=== PATIENT | male | born 1985 | race Caucasian/White ===

== ENCOUNTER 2017-07-22 09:54 | Outpatient (CLI) | payer OTHER | END 2017-07-22 09:55 | disposition home or self-care (01) | LOC: LABBT 09:54 | PROVIDERS: ATTEND Specialist | DX: Z01.818 Encounter for other preprocedural examination (principal); R22.2 Localized swelling, mass and lump, trunk ==

== ENCOUNTER 2017-07-25 06:05 | Day surgery (SDC) | payer OTHER ==
--- NOTE | 2017-07-16 13:34 | HP ---
HISTORY OF PRESENT ILLNESS: A 32-year-old male who works in the [employer] with three childr kenn, has had a right upper quadrant soft tissue mass present for more than 14 months. It is mobile. It seems to be enlarging and bothersome to him. He desires removal. Plan is to excise this under IV sedation, local versus general anesthesia as an outpatient. A drain may be used. ALLERGIES: None. TOBACCO: None. He does dip. ALCOHOL: None. MEDICATIONS: Protonix. PAST SURGICAL HISTORY: EGD, tonsillectomy, adenoidectomy, left ACL meniscectomy, multiple right foot surgeries. REVIEW OF SYSTEMS: Ten point noncontributory. PHYSICAL EXAMINATION: VITAL SIGNS: 231 pounds, 74 inches, 136/80, 66, 99 degrees. HEENT: Unremarkable. LUNGS: Clear to auscultation. CARDIAC: Regular rate and rhythm without murmur or gallop. ABDOMEN: Soft, scars from previous laparoscopic cholecystectomy. Right upper quadrant, subcostal, 6 -7 cm diameter soft tissue mass consistent with lipoma. It is mobile, does not change on Valsalva st anding. EXTREMITIES: Unremarkable. No ankle edema. No axillary groin or neck lymphadenopathy. Neurologica lly intact. ASSESSMENT AND PLAN: 1. Lipoma mass, right upper quadrant. Plan excision as noted above. 2. History of reflux. He has had multiple CAT scans and CT angios for what he describes as an air p ocket caught in his chest. He has had EKGs and CAT scans that are unremarkable. He has had an upper endoscopy in [place] and other upper endoscopy and locally by Dr. Darling revealing distal esophagitis wit h empiric dilatation of the esophagus without any other findings to explain his symptoms. He states that he will get this air pocket got in his chest when he is drinking the night before; the next day, he experienced vomiting and nausea. He has quit drinking and his symptoms have improved. He is phillip ing the Protonix every day and that has helped. He has lost weight intentionally 25 pounds that has helped. He denies experiencing burning pain in his chest.
[2017-07-25] MEDS ORDERED: Bupivacaine/Epinephrine 0.25% 30 ML VIAL ONE (06:28)
[2017-07-25] MEDS ORDERED: CEFAZOLIN/Water 2 GM/20 ML SYRINGE ONE (06:38)
[2017-07-25] MEDS ORDERED: Ketorolac Tromethamine 30 MG/ML VIAL ONE (06:38)
[2017-07-25] MEDS ORDERED: Fentanyl 100 MCG/2 ML VIAL ONE ×2 (07:50→08:51)
[2017-07-25] MEDS ORDERED: Midazolam HCl 2 mg/2 ml Vial ONE (07:50)
[2017-07-25] MEDS ORDERED: Lidocaine 2% 10 ML INJ ONE (08:04)
[2017-07-25] MEDS ORDERED: SUGAMMADEX SODIUM 200 MG/2 ML VIAL ONE (08:43)
--- NOTE | 2017-07-25 09:59 | OP ---
DATE OF OPERATION: 07/25/2017 PREOPERATIVE DIAGNOSIS: Lipoma abdominal wall, right upper quadrant. POSTOPERATIVE DIAGNOSIS: Lipoma abdominal wall, right upper quadrant. PROCEDURE: A 6 centimeter incision, excision of 6 x 5 centimeter lipoma abdominal wall deep to the f ascia. SURGEON: Dr. Adams Chris ANESTHESIA: General. Local 0.5% Marcaine with epinephrine, 30 mL, mixed with 2% Xylocaine, 10 mL to oniel volume mixture used. FINDINGS: Lipoma deep to the subcutaneous fascia overlying the muscular fascia. ESTIMATED BLOOD LOSS: Less than10 mL. PROCEDURE: The patient was taken to the operating room where under general anesthesia, the abdomen was clipped of hair, prepared with ChloraPrep, draped in routine fashion. Incision was made in the r ight upper quadrant overlying the lipomatous mass carried down skin and subcutaneous tissues to the d eep subcutaneous fascia, identifying a lipoma excising from surrounding tissues and from the underlyi ng muscular fascia. The lipoma excised of dimensions noted above. Hemostasis gained with the cauter y. Subcutaneous tissues approximated with 3-0 Monocryl, skin with subdermal 4-0 Monocryl and DermaGl ue applied. The patient tolerated the procedure well.
[2017-07-25] MEDS ORDERED: HYDROcodone/Acetaminophen 5/325 mg Tablet ONE (10:11)
[2017-07-25] MEDS ORDERED: PROPOFOL 200 MG/20 ML VIAL ONE (19:56)
[2017-07-25] MEDS ORDERED: Lidocaine 1% PF 5 ML VIAL ONE (19:56)
== END 2017-07-25 11:15 | disposition home or self-care (01) ==
LOC: SDC 06:05
PROVIDERS: ATTEND Specialist
PROC: 0KBK0ZZ Excision of Right Abdomen Muscle, Open Approach (ICD-10-PCS; principal; 2017-07-25)
DX: D17.79 Benign lipomatous neoplasm of other sites (principal); K21.9 Gastro-esophageal reflux disease without esophagitis; Z79.899 Other long term (current) drug therapy; Z98.890 Other specified postprocedural states
CPT/HCPCS: 88304; 96374; J0131; J1885; J2001; J2250; J2704; J3010